=== PATIENT | male | born 1995 | race Caucasian/White ===

== ENCOUNTER 2023-08-16 17:32 | Emergency (ER) | payer OTHER ==
--- NOTE | 2023-08-16 19:55 | RAD REPORT ---
EXAM DESCRIPTION: RAD - Chest Pa And Lat (2 Views) - 08/16/2023 6:01 pm CLINICAL HISTORY: COUGH COMPARISON: No comparisons TECHNIQUE: PA and lateral views of the chest were obtained. FINDINGS: The lungs are clear. Heart size is normal and central vasculature is within normal limits. No pleural effusion or pneumothorax seen. No acute bony finding noted. IMPRESSION: No acute cardiopulmonary process.
--- NOTE | 2023-08-16 19:59 | EDPHYS ---
Physician Documentation [facility] Name: Kevin Zacarias Age: 27 yrs Sex: Male : 1995 Arrival Date: 08/16/2023 Time: 17:32 Bed Treatment Private MD: ED Physician Pk Armstrong HPI: 08/16 18:21 This 27 yrs old Male presents to ER via Ambulatory with complaints of Cough, Chest kb Pressure. 18:21 Pt is a 27 year old male with no medical history who presents for a cough that started kb 3 weeks ago. Denies fever. Reports intermittent post tussive vomiting and dizziness after coughing fits. . Historical: - Allergies: 17:41 No Known Allergies; tl4 - Home Meds: 17:41 None [Active]; tl4 - PMHx: 17:41 None; tl4 - PSHx: 17:41 None; tl4 - Immunization history:: Adult Immunizations unknown. - Social history:: Smoking status: Patient denies any tobacco usage or history of. ROS: 18:21 Constitutional: Negative for fever, chills, and weight loss, kb 18:21 Cardiovascular: Positive for chest pain, 18:21 Abdomen/GI: Positive for vomiting, Negative for abdominal pain, nausea, 18:21 Neuro: Positive for dizziness, 18:21 All other systems are negative, Exam: 18:21 Constitutional: This is a well developed, well nourished patient who is awake, alert, kb and in no acute distress. Head/Face: Normocephalic, atraumatic. ENT: Moist Mucous membranes Cardiovascular: Regular rate Respiratory: Respirations even and unlabored. No increased work of breathing. Talking in full sentences Abdomen/GI: Soft, non-tender. No distention Skin: Warm, dry with normal turgor. Normal color. MS/ Extremity: Pulses equal, no cyanosis. Neurovascular intact. Full, normal range of motion. Neuro: Awake and alert, GCS 15, oriented to person, place, time, and situation. Moves all extremities. Normal gait. Vital Signs: 17:38 BP 168 / 74; Pulse 104; Resp 18; Temp 97.3(TE); Pulse Ox 100% ; Weight 95.25 kg; Height tl4 5 ft. 11 in. ; Pain 0/10; 17:55 BP 139 / 81; Pulse 95; Resp 18; Pulse Ox 99% on R/A; me1 19:00 BP 130 / 76; Pulse 90; Resp 17; Pulse Ox 97% ; me1 20:09 BP 146 / 92; Pulse 101; Resp 18; Pulse Ox 97% ; me1 17:38 Body Mass Index 29.29 (95.25 kg, 180.34 cm) tl4 17:38 Pain Scale: Adult tl4 MDM: 17:36 Patient medically screened. kb 18:21 Differential Diagnosis: Bronchitis Influenza Upper Respiratory Infection Pneumonia. kb Data reviewed: vital signs, nurses notes. Test considered but Not performed: Labs: covid and flu tests considered, but result would not change plan of care. 19:58 Counseling: I had a detailed discussion with the patient and/or guardian regarding the kb historical points, exam findings, and any diagnostic results supporting the discharge/admit diagnosis, radiology results, the need for outpatient follow up, a family practitioner, to return to the emergency department if symptoms worsen or persist or if there are any questions or concerns that arise at home. 08/16 17:39 Order name: Chest Pa And Lat (2 Views) XRAY; Complete Time: 19:58 kb Administered Medications: No medications were administered Disposition Summary: 08/16/23 19:59 Discharge Ordered Notes: Location: Home kb Condition: Stable kb Diagnosis - Cough kb Followup: kb - With: Emergency Department - When: As needed - Reason: Worsening of condition Followup: kb - With: Private Physician - When: 2 - 3 days - Reason: Recheck today's complaints, Continuance of care, Re-evaluation by your physician Discharge Instructions: - Discharge Summary Sheet kb - Cough, Adult, [id number] kb Forms: - Medication Reconciliation Form kb - Thank You Letter kb - Antibiotic Education kb - Prescription Opioid Use kb - Patient Portal Instructions kb - Leadership Thank You Letter kb Prescriptions: - albuterol sulfate 90 mcg/actuation Inhalation HFA Aerosol Inhaler - inhale 2 puff INHALATION route every 4-6 hours As needed; 1 unit; Refills: 0, kb Product Selection Permitted - Tessalon Perles 100 mg Oral Capsule - take 1 capsule ORAL route every 8 hours As needed; 15 capsule; Refills: 0, kb Product Selection Permitted Addendum: 08/19/2023 00:06 Co-signature as Attending Physician, Pk Armstrong MD I reviewed the patient's care r n provided by the Advanced Practice Provider and agree with the diagnosis and treatment plan. Signatures: Dispatcher [employer] Rosangela Tolbert, COMPUTER FORWARDING SYSTEM MARKUP CLERK-C COMPUTER FORWARDING SYSTEM MARKUP CLERK-Ckb Pk Armstrong MD MD rn Peggybernadette, Jose tl4
--- NOTE | 2023-08-16 19:59 | ER ---
Nurse's Notes [facility] Name: Kevin Zacarias Age: 27 yrs Sex: Male : 1995 Arrival Date: 08/16/2023 Time: 17:32 Bed Treatment Private MD: Diagnosis: Cough Presentation: 08/16 17:38 Chief complaint: Patient states: Pt c/o cough x 3 weeks. Pt states he has episodes of tl4 dizziness, vomiting, and chest pressure associated with coughing episodes. No relief with OTC meds. Coronavirus screen: Vaccine status: Patient reports being unvaccinated. congestion, cough unrelated to allergies, vomiting. Ebola Screen: Patient negative for fever greater than or equal to 101.5 degrees Fahrenheit, and additional compatible Ebola Virus Disease symptoms Patient denies exposure to infectious person. Patient denies travel to an Ebola-affected area in the 21 days before illness onset. No symptoms or risks identified at this time. Initial Sepsis Screen: Does the patient meet any 2 criteria? No. Patient's initial sepsis screen is negative. Does the patient have a suspected source of infection? No. Patient's initial sepsis screen is negative. Risk Assessment: Do you want to hurt yourself or someone else? Patient reports no desire to harm self or others. Onset of symptoms was August 02, 2023. 17:38 Method Of Arrival: Ambulatory tl4 17:38 Acuity: RAFFAELE 4 tl4 Historical: - Allergies: 17:41 No Known Allergies; tl4 - Home Meds: 17:41 None [Active]; tl4 - PMHx: 17:41 None; tl4 - PSHx: 17:41 None; tl4 - Immunization history:: Adult Immunizations unknown. - Social history:: Smoking status: Patient denies any tobacco usage or history of. Screenin:47 [facility] ED Fall Risk Assessment (Adult) History of falling in the last 3 months, me1 including since admission No falls in past 3 months (0 pts) Confusion or Disorientation No (0 pts) Intoxicated or Sedated No (0 pts) Impaired Gait No (0 pts) Mobility Assist Device Used No (0 pt) Altered Elimination No (0 pt) Score/Fall Risk Level 0 - 2 = Low Risk Maintained a safe environment, Provided non-skid footwear, Hourly rounding (assess needs \T\ fall precautionary measures) done. Abuse screen: Denies threats or abuse. Nutritional screening: No deficits noted. Tuberculosis screening: No symptoms or risk factors identified. Assessment: 17:47 General: Appears comfortable, well developed, well nourished, Behavior is calm, me1 cooperative, appropriate for age, Reports Pt c/o cough x 3 weeks. Pt states he has episodes of dizziness, vomiting, and chest pressure associated with coughing episodes. No relief with OTC meds. Pain: Denies pain. Pain: Complains of pain in chest Pain does not radiate. Pain at worst was 7 out of 10 on a pain scale. Quality of pain is described as pressure, Pain began with coughing spells Is intermittent. Neuro: Level of Consciousness is awake, alert, obeys commands. Cardiovascular: Capillary refill < 3 seconds Patient's skin is warm and dry. Respiratory: Airway is patent Respiratory effort is even, unlabored, Respiratory pattern is regular, symmetrical. GI: Reports vomiting, at times with coughing spells. Vital Signs: 17:38 BP 168 / 74; Pulse 104; Resp 18; Temp 97.3(TE); Pulse Ox 100% ; Weight 95.25 kg; Height tl4 5 ft. 11 in. ; Pain 0/10; 17:55 BP 139 / 81; Pulse 95; Resp 18; Pulse Ox 99% on R/A; me1 19:00 BP 130 / 76; Pulse 90; Resp 17; Pulse Ox 97% ; me1 20:09 BP 146 / 92; Pulse 101; Resp 18; Pulse Ox 97% ; me1 17:38 Body Mass Index 29.29 (95.25 kg, 180.34 cm) tl4 17:38 Pain Scale: Adult tl4 ED Course: 17:35 Patient arrived in ED. im 17:36 Ros[facility] Henry [facility]C [facility] kb 17:36 Pk Armstrong MD is Attending Physician. kb 17:41 Triage completed. tl4 17:41 Arm band placed on Patient placed in an exam room, on a stretcher. tl4 17:46 Leticia Reed, RADHA is Primary Nurse. me1 17:47 Patient has correct armband on for positive identification. Call light in reach. me1 Provided Education on: POC. Verbalized understanding. . Client placed on continuous cardiac and pulse oximetry monitoring. NIBP monitoring applied. 17:47 No provider procedures requiring assistance completed. Patient did not have IV access me1 during this emergency room visit. Patient maintains SpO2 saturation greater than 95% on room air. 18:03 Chest Pa And Lat (2 Views) XRAY In Process Unspecified. EDMS Administered Medications: No medications were administered Medication: 17:47 VIS not applicable for this client. me1 Outcome: 19:59 Discharge ordered by . phillip 20:11 Discharged to home ambulatory, me1 20:11 Condition: stable 20:11 Discharge instructions given to patient, Instructed on discharge instructions, follow up and referral plans. medication usage, Demonstrated understanding of instructions, follow-up care, medications, Prescriptions given X 2, 20:12 Patient left the ED. me1 Signatures: Dispatcher [employer] EDRosangela Wheatley, BOARD ATTENDANT-C BOARD ATTENDANT-Christina Vines Michelle, RN RN me1 LogdaJose fleming tl4 Corrections: (The following items were deleted from the chart) 17:47 17:38 Chief complaint: Patient states: Pt c/o cough x 3 weeks. Pt states he has me1 episodes of dizziness, vomiting, and chest pressure associated with coughing episodes. No relief with OTC meds. tl4
[2023-08-16 20:49] VITALS: TEMP 97.3
[2023-08-16 20:51] VITALS: BP 146/92; O2SAT 97
== END 2023-08-16 20:12 | disposition home or self-care (01) ==
LOC: ER 17:32
DX: R05.9 Cough, unspecified (principal)
CPT/HCPCS: 71046; 99284